=== PATIENT | male | born 1960 | race Two or more races ===

== ENCOUNTER 2024-06-17 21:23 | Emergency (ER) | payer OTHER ==
[~2024-06-17] VITALS: Ht 185.4 cm; Wt 106.6 kg
[2024-06-18] MEDS ORDERED: ORPHENADRINE CITRATE 30 MG/ML AMPUL IM STA (03:42)
[2024-06-18] MEDS ORDERED: KETOROLAC TROMETHAMINE 60 MG VIAL IM STA (03:42)
[2024-06-18] MEDS ORDERED: OxyCODONE HCL/APAP UD (PERCOCET) PO STA (03:43)
[2024-06-18] MEDS ORDERED: DEXAMETHASONE SODIUM PHOSPHATE 4 MG/ML VIAL IM STA (03:43)
[2024-06-18] MEDS ORDERED: TRAMADOL HCL 50 MG TABLET PO STA (03:59)
== END 2024-06-18 04:14 | disposition home or self-care (01) ==
LOC: ER 21:23
DX: M54.41 Lumbago with sciatica, right side (principal); Z88.2 Allergy status to sulfonamides
CPT/HCPCS: 96372; 99282; J1100; J1885; J2360